=== PATIENT | male | born 1970 | race Caucasian/White ===

== ENCOUNTER 2021-07-28 14:03 | Emergency (ER) | payer BC ==
[~2021-07-28] VITALS: Ht 175.3 cm; Wt 119.8 kg
[2021-07-28 14:03] VITALS: BP 125/74
--- NOTE | 2021-07-28 14:54 | PHYS DOC ---
General Adult EDM: Chief Complaint: FATIGUE HPI: HPI: Patient is a 51-year-old male who presents for fatigue since this morning. Patient states "I woke up this morning and felt I could hardly get out of bed and I had no appetite for couple of days". Denies fever, nausea/vomiting/diarrhea, shortness of breath, cough. "I really just wanted a Covid test to make sure I can go to work". Has history of hypertension and diabetes. (ROSARIO GA APRN) Review of Systems: Review of Systems: ROS At least 10 ROS systems have been reviewed and are negative except as documented in the HPI. General: Negative except as outlined in HPI above. Skin: Negative except as outlined in HPI above. HEENT: Negative except as outlined in HPI above. Neck: Negative except as outlined in HPI above. Respiratory: Negative except as outlined in HPI above.. Cardiovascular: Negative except as outlined in HPI above. Abdomen: Negative except as outlined in HPI above. : Negative except as outlined in HPI above. Back/MSK: Negative except as outlined in HPI above. Neuro: Negative except as outlined in HPI above. Psych: Negative except as outlined in HPI above. (ROSARIO GA APRN) Physical Exam: PE: Constitutional: Well developed, well nourished, no acute distress, non-toxic appearance. [] HENT: Normocephalic, atraumatic, bilateral external ears normal, oropharynx moist, no oral exudates, nose normal. [] Eyes: PERRLA, EOMI, conjunctiva normal, no discharge. [] Neck: Normal range of motion, no tenderness, supple, no stridor. [] Cardiovascular:Heart rate regular rhythm, no murmur [] Lungs & Thorax: Bilateral breath sounds clear to auscultation [] Abdomen: Bowel sounds normal, soft, no tenderness, no masses, no pulsatile masses. [] Skin: Warm, dry, no erythema, no rash. [] Back: No tenderness, no CVA tenderness. [] Extremities: No tenderness, no cyanosis, no clubbing, ROM intact, no edema. [] Neurologic: Alert and oriented X 3, normal motor function, normal sensory function, no focal deficits noted. [] Psychologic: Affect normal, judgement normal, mood normal. [] (ROSARIO GA APRN) EKG: EKG: [] (ROSARIO GA APRN) Radiology/Procedures: Radiology/Procedures: [] (ROSARIO GA APRN) Heart Score: C/O Chest Pain: No Risk Factors: Risk Factors: DM, Current or recent (<one month) smoker, HTN, HLP, family history of CAD, obesity. Risk Scores: Score 0 - 3: 2.5% MACE over next 6 weeks - Discharge Home Score 4 - 6: 20.3% MACE over next 6 weeks - Admit for Clinical Observation Score 7 - 10: 72.7% MACE over next 6 weeks - Early Invasive Strategies (ROSARIO GA APRN) Course & Med Decision Making: Course & Med Decision Making Pertinent Labs and Imaging studies reviewed. (See chart for details) [] 51-year-old male presents with fatigue since this morning. Patient is concerned he has Covid and is requesting a Covid test. Denies chest pain, shortness of breath, nausea/vomiting/diarrhea. Afebrile. Covid swab obtained. Explained to patient to take couple of days for us to receive results. Discussed quarantining. Patient is requesting a work note. Advised patient that he needs to follow-up with his PCP in 2 to 3 days for further management. Discussed return precautions in length. Patient states he understands discharge instructions and is happy with care. Patient is hemodynamically stable. (ROSARIO GA APRN) Course & Med Decision Making I have participated in the care of this patient and I have reviewed and agree with all pertinent clinical information above including history, exam, and recommendations. Mario Rivas DO (MARIO RIVAS DO) Rosa Disclaimer: Rosa Disclaimer: This electronic medical record was generated, in whole or in part, using a voice recognition dictation system. (ROSARIO GA APRN) Departure Departure: Impression: Primary Impression: Encounter for laboratory testing for COVID-19 virus Disposition: HOME / SELF CARE / HOMELESS Condition: STABLE Referrals: IBAN AGARWAL (PCP) Patient Instructions: Fatigue Additional Instructions: You were seen in the emergency room for fatigue and a Covid test. I provided you with a work note. Make sure you quarantine to receive results. Ibuprofen and Tylenol at home if you have a fever or body aches. To the emergency room if you have worsening symptoms or concerns. EMERGENCY DEPARTMENT GENERAL DISCHARGE INSTRUCTIONS Thank you for coming to [facility] (ED) today and trusting us with you care. We trust that you had a positivie experience in our Emergency Department. If you wish to speak to the department management, you may call the director at [phone]. YOUR FOLLOW UP INSTRUCTIONS ARE FOLLOWS: 1. Do you have a private Doctor? If you do not have a private doctor, please ask for a resource list of physicians or clinics that may be able to assist you with follow up care. 2. The Emergency Physician has interpreted your x-rays. The X-Ray specialist will also review them. If there is a change in the findings, you will be notified in 48 hours when at all possible. 3. A lab test or culture has been done, your results will be reviewed and you will be notified if you need a change in treatment. ADDITIONAL INSTRUCTIONS AND INFORMATION: 1. Your care today has been supervised by a physician who is specially trained in emergency care. Many problems require more than one evaluation for a complete diagnosis and treatment. We recommend that you schedule your follow up appointment as recommended to ensure complete treatment of you illness or injury. If you are unable to obtain follow up care and continue to have a problem, or if your condition worsens, we recommend that you return to the ED. 2. We are not able to safely determine your condition over the phone nor are we able to give sound medical advice over the phone. For these safety reasons, if you call for medical advice we will ask you to come to the ED for further evaluation. 3. If you have any questions regarding these discharge instructions please call the ED at [phone]. SAFETY INFORMATION: In the interest of safety, wellness, and injury prevention; we encourage you to wear your sealbelt, if you smoke; quite smoking, and we encourage family to use a protective helmet for bicycling and other sporting events that present an increased risk for head injury. IF YOUR SYMPTOMS WORSEN OR NEW SYMPTOMS DEVELOP, OR YOU HAVE CONCERNS ABOUT YOUR CONDITION; OR IF YOUR CONDITION WORSENS WHILE YOU ARE WAITING FOR YOUR FOLLOW UP APPOINTMENT; EITHER CONTACT YOUR PRIMARY CARE DOCTOR, THE PHYSICIAN WHOSE NAME AND NUMBER YOU WERE GIVEN, OR RETURN TO THE ED IMMEDIATELY. ROSARIO GA APRN Jul 28, 2021 14:54 MARIO RIVAS DO Jul 31, 2021 00:35
== END 2021-07-28 15:00 | disposition home or self-care (01) ==
LOC: ER 14:03
DX: R53.83 Other fatigue (principal); Z20.822 Contact with and (suspected) exposure to COVID-19
CPT/HCPCS: 99283; C9803; U0003